=== PATIENT | female | born 1990 | race Two or more races ===

== ENCOUNTER 2018-08-10 02:22 | Observation (INO) ==
--- NOTE | 2018-08-10 02:27 | ED ---
HPI General Chief Complaint: Abdominal Pain Stated Complaint: Medical Time Seen by Provider: 08/10/18 02:26 History of Present Illness HPI narrative: Patient is a 28-year-old female seen at [facility] the ER diagnosed by CAT scan with appendicitis transfer from Dr. Cox to Dr. Eaton for appendicitis to the OR patient is n.p.o. given Zofran, Zosyn 3.375 g and normal saline IV fluid and is stable at this time. Will be taken to the OR in the a.m. by Dr. Eaton from the ER Related Data Home Medications Medication Instructions Recorded Confirmed No Known Home Medications 08/09/18 08/10/18 Previous Rx's Medication Instructions Recorded hydrocodone-acetaminophen 1 tab PO Q4-6H PRN #25 tab 08/10/18 Allergies Allergy/AdvReac Type Severity Reaction Status Date / Time ibuprofen Allergy Hives Verified 08/09/18 21:21 Review of Systems ROS: all other systems reviewed are negative [facility] Social History Social History Substance History: No History of Abuse Second Hand Smoke Exposure: Yes Smoking Status: Current every day smoker Tobacco Type: Cigarettes How Often Do You Have a Drink Containing Alcohol: Never Recent Travel in [facility] within the Last 8 Weeks: No Recent Out of Country Travel within the Last 8 Weeks: No Exam Narrative Exam Narrative: GENERAL: SKIN: Warm and dry. HEAD: Atraumatic. Normocephalic. EYES: Pupils equal and round. No scleral icterus. No injection or drainage. ENT: No nasal bleeding or discharge. Mucous membranes pink and moist. NECK: Trachea midline. No JVD. CARDIOVASCULAR: Regular rate and rhythm. RESPIRATORY: No accessory muscle use. Clear to auscultation. Breath sounds equal bilaterally. GASTROINTESTINAL: Abdomen tender to RLQ MUSCULOSKELETAL: Extremities without clubbing, cyanosis, or edema. No obvious deformities. NEUROLOGICAL: Awake and alert. No obvious cranial nerve deficits. Motor grossly within normal limits. Five out of 5 muscle strength in the arms and legs. Normal speech. PSYCHIATRIC: Appropriate mood and affect; insight and judgment normal. Course Initial Documented Vital Signs Pulse Rate 74 08/10/18 02:24 Respiratory Rate 20 08/10/18 02:24 Blood Pressure 118/62 08/10/18 02:24 Pulse Oximetry 98 08/10/18 02:24 Last Documented Vital Signs Temperature 98.1 F 08/11/18 04:00 Pulse Rate 65 08/11/18 04:00 Respiratory Rate 18 08/11/18 08:18 Blood Pressure 106/58 L 08/11/18 04:00 Pulse Oximetry 99 08/11/18 04:00 Medical Decision Making MDM Narrative Medical Screen Exam Complete: Yes Emergency Medical Condition: Yes Discharge Plan Discharge Disposition Patient Disposition: 01 Discharge Home Discharge Condition Condition: Stable Discharge Order Discharge Orders: Discharge Order (Routine); Ordered 08/11/18 Ordered By: Joshua Luna Discharge Details Anticipated Discharge Date: 08/10/18 Physicians Team ED Provider: Luc Batista Primary Care Provider: Primary Care Jacey Kam Attending Provider: Joshua Luna Other Providers: Surgeons,[facility] Status ED Status: Left Department Discharge Information Discharge Date/Time: 08/10/18 08:58
[2018-08-10] MEDS: Sod Chloride 0.9% Inj 1,000 ML IV.CONT SCH ×2 (03:12→23:21)
[2018-08-10] MEDS ORDERED: Morphine Inj 4 MG/ML Vial IV.PUSH ONE (03:16)
[2018-08-10] MEDS: Morphine Sulfate Inj 2 MG/ML Vial IV.PUSH PRN ×2 (03:23→15:24)
[2018-08-10] MEDS: Piperacil/Tazo 3.375 GM Premix 50 ML IV.SIG SCH ×3 (07:25→23:21)
--- NOTE | 2018-08-10 09:19 | P.HPGS ---
History of Present Illness Service: HISTORY AND PHYSICAL NOTE FOR SURGICAL ATTENDING, DR. BRIAN LUNA General Surgery Primary Care Physician: No Primary Care Physician Chief Complaint: Abdominal pain History of Present Illness: This is a 28 year old female with no significant medical history who was in her usual state of health yesterday until she developed acute onset of RIGHT lower quadrant abdominal pain yesterday afternoon with associated nausea and vomiting. She denies any fever or chills. She went to the ED in [place] and had a CT abdomen/pelvis with findings consistent with acute appendicitis. She did have an elevated WBC of 18.9k. The patient was transported to [facility] for a General Surgery consultation. - Diagnosis (1) Acute appendicitis (2) Abnormal findings on diagnostic imaging of abdomen (3) Elevated WBC count Inpatient Certification: I certify that the inpatient services were ordered in accordance with Medicare regulations governing the order. This includes certification that hospital inpatient services are reasonable and necessary and in the case of services not specified as inpatient-only under 42 CFR 419.22(n), that they are appropriately provided as inpatient services in accordance to with the 2-midnight benchmark under 43 CFR 412.3(e) Plans for Post Hospital Care: Home Review of Systems All other systems reviewed negative except as stated in HPI PMFSH - History History Provided By: Patient - Medical History Medical History: Medical History (Last Reviewed 08/10/18 @ 10:57 by Brian Luna MD) Patient denies medical problems - Surgical History Surgical History: Surgical History (Last Reviewed 08/10/18 @ 10:57 by Brian Luna MD) No history of previous surgery - Social History I have reviewed the patient's Social History: Yes - Tobacco History Second Hand Smoke Exposure: Yes Tobacco Use In Past 30 Days: Yes Smoking Status: Current every day smoker Tobacco Type: Cigarettes - Alcohol History How Often Do You Have a Drink Containing Alcohol: Never - Substance Use History Substance History: No History of Abuse - Travel History Recent Travel in the [place] Within the Last 8 Weeks: No Recent Travel Out of the Country Within the Last 8 Weeks: No - Immunization History Tetanus Immunization: Unsure Hx Influenza Vaccine This Season: No Medications and Allergies Allergies Allergy/AdvReac Type Severity Reaction Status Date / Time ibuprofen Allergy Hives Verified 08/09/18 21:21 Home Medications Medication Instructions Recorded Confirmed Type No Known Home Medications 08/09/18 08/10/18 History Active Medications: Active Medications Sodium Chloride (Ns Inj) 1,000 mls @ 125 mls/hr IV.CONT .Q8H [facility] Last Admin: 08/10/18 03:12 Dose: 125 mls/hr Piperacillin/Tazobactam/Dextrose (Zosyn 3.375 Gm Premix) 50 mls @ 100 mls/hr IV.SIG Q8H [facility] Last Infusion: 08/10/18 08:10 Dose: Infused Morphine Sulfate (Morphine Inj) 2 mg IV.PUSH Q3H PRN PRN Reason: ABDOMINAL PAIN Last Admin: 08/10/18 03:23 Dose: 2 mg Ondansetron HCl (Zofran Inj) 4 mg IV.PUSH Q6H PRN PRN Reason: Acute Pain Sodium Chloride (Ns Flush) 2 ml IV.FLUSH BID [facility] Last Admin: 08/10/18 08:11 Dose: Not Given Sodium Chloride (Ns Flush) 2 ml IV.FLUSH PRN PRN PRN Reason: FLUSH AFTER USING IV ACCESS Exam Vital signs: Vital Signs 08/10/18 02:24 08/10/18 05:01 08/10/18 05:07 Temperature 98.0 F Pulse Rate 74 70 76 Respiratory Rate 20 18 18 Blood Pressure 118/62 106/55 L Pulse Oximetry 98 100 100 08/10/18 07:27 Temperature 98.1 F Pulse Rate 60 Respiratory Rate 17 Blood Pressure 98/52 L Pulse Oximetry 99 Intake & Output 08/09/18 08/10/18 08/10/18 18:59 06:59 18:59 Intake Total 50 / 50 Balance 50 / 50 Weight 57.153 kg Intake: IV 50 / 50 Zosyn 3.375 GM Premix 50 ML @ 50 / 50 100 mls/hr IV.SIG Q8H [facility] Rx#: [id number] Narrative: GENERAL: Pleasant 28 year old female resting in mild acute distress secondary to abdominal pain. SKIN: Warm and dry. HEAD: Atraumatic. Normocephalic. EYES: Pupils equal and round. No scleral icterus. No injection or drainage. ENT: No nasal bleeding or discharge. Mucous membranes pink and moist. NECK: Trachea midline. CARDIOVASCULAR: Regular rate and rhythm. RESPIRATORY: No accessory muscle use. Clear to auscultation. Breath sounds equal bilaterally. GASTROINTESTINAL: Abdomen soft, mildly distended; RLQ abdominal tenderness to palpation. No visible scars of hernias. Umbilical piercing in place. MUSCULOSKELETAL: Extremities without clubbing, cyanosis, or edema. No obvious deformities. NEUROLOGICAL: Awake and alert. No obvious cranial nerve deficits. Motor grossly within normal limits. Five out of 5 muscle strength in the arms and legs. Normal speech. PSYCHIATRIC: Appropriate mood and affect; insight and judgment normal. Results - Labs White count 18,000 - Imaging Imaging: CT scan abdomen pelvis FINDINGS: LOWER LUNGS: The visualized lower lungs are clear. LIVER: The liver has a homogeneous density without space-occupying lesion. There is no dilation of the biliary tree. SPLEEN: Homogeneous density without enlargement. PANCREAS: Unremarkable without mass or calcification. KIDNEYS: Kidneys demonstrate symmetrical enhancement and are symmetrical in size without evidence for radiopaque renal calculi or hydronephrosis. ADRENAL GLANDS: Unremarkable. AORTA: Karin-aneurysmal. BOWEL/MESENTERY: There is a focal hyperdensity near the cecum at the expected origin of the appendix consistent with appendicolith. Dilated tubular structure extending from this region with mild blunting inflammatory change consistent with acutely inflamed appendix. Several subcentimeter mesenteric nodes are likely reactive. No free air or abscess at this time. ABDOMINAL WALL: Intact. RETROPERITONEUM: No evidence of adenopathy in the retrocrural, para-aortic, or deep pelvic regions. BLADDER: Contours are smooth. REPRODUCTIVE: Prominent endometrium. 1.7 cm left ovarian cyst. BONY STRUCTURES: Unremarkable. CONCLUSION: 1. Findings consistent with acute appendicitis. No evidence for rupture or abscess at this time. CT scan - abdomen: report reviewed, image reviewed CT scan - pelvis: report reviewed, image reviewed Caprini VTE Risk Assessment Caprini VTE Risk Assessment: No/Low Risk (score <= 1) VTE Pharmacological Exception Reason: Documented (Patient going to OR ) Caprini Risk Assessment Model: Point Value = 1 Point Value = 2 Point Value = 3 Point Value = 5 Age 41-60 Minor surgery BMI > 25 kg/m2 Swollen legs Varicose veins or History of unexplained or recurrent spontaneous Oral contraceptives or hormone replacement Sepsis (< 1 month) Serious lung disease, including pneumonia (< 1 month) Abnormal pulmonary function Acute myocardial infarction Congestive heart failure (< 1 month) History of inflammatory bowel disease Medical patient at bed rest Age 61-74 Arthroscopic surgery Major open surgery (> 45 min) Laparoscopic surgery (> 45 min) Malignancy Confined to bed (> 72 hours) Immobilizing plaster cast Central venous access Age >= 75 History of VTE Family history of VTE Factor V Leiden Prothrombin [id number] Lupus anticoagulant Anticardiolipin antibodies Elevated serum homocysteine Heparin-induced thrombocytopenia Other congenital or acquired thrombophilia Stroke (< 1 month) Elective arthroplasty Hip, pelvis, or leg fracture Acute spinal cord injury (< 1 month) Prophylaxis Regimen: Total Risk Factor Score Risk Level Prophylaxis Regimen 0-1 Low Early ambulation 2 Moderate Order ONE of the following: *Sequential Compression Device (SCD) *Heparin 5000 units SQ BID 3-4 Higher Order ONE of the following medications: *Heparin 5000 units SQ TID *Enoxaparin/Lovenox 40 mg SQ daily (WT < 150 kg, CrCl > 30 mL/min) *Enoxaparin/Lovenox 30 mg SQ daily (WT < 150 kg, CrCl > 10-29 mL/min) *Enoxaparin/Lovenox 30 mg SQ BID (WT < 150 kg, CrCl > 30 mL/min) AND/OR *Sequential Compression Device (SCD) 5 or more Highest Order ONE of the following medications: *Heparin 5000 units SQ TID (Preferred with Epidurals) *Enoxaparin/Lovenox 40 mg SQ daily (WT < 150 kg, CrCl > 30 mL/min) *Enoxaparin/Lovenox 30 mg SQ daily (WT < 150 kg, CrCl > 10-29 mL/min) *Enoxaparin/Lovenox 30 mg SQ BID (WT < 150 kg, CrCl > 30 mL/min) AND *Sequential Compression Device (SCD) Assessment and Plan - Assessment (1) Acute appendicitis Code(s): K35.80 - Unspecified acute appendicitis Status: Acute Qualifiers: Acute appendicitis type: with generalized peritonitis Appendicitis abscess presence: without abscess Plan: 28 year old female with acute appendicitis -Plan for OR this morning with Dr. Luna -Obtain consents -NPO -IVF -Continue IV antibiotics -Morphine available for pain control -Procedure explained in detail including risks and benefits -All questions answered (2) Abnormal findings on diagnostic imaging of abdomen Code(s): R93.5 - Abnormal findings on diagnostic imaging of other abdominal regions, including retroperitoneum Status: Acute (3) Elevated WBC count Code(s): D72.829 - Elevated white blood cell count, unspecified Status: Acute - Plan HISTORY and physical NOTE FOR SURGICAL ATTENDING, DR. BRIAN LUNA Patient has classic signs and symptomatology consistent with appendicitis confirmed with radiologic imaging Plan laparoscopic appendectomy possible open I agree with above assessment and plan. The exam, history, and the medical decision-making described in the above note were completed with the assistance of the mid-level provider. I reviewed and agree with the findings presented. I attest that I had a [id number] encounter with the patient on the same day, and personally performed and documented my assessment and findings in the medical record. The following services were provided during this hospital visit: Chart data review, vital sign assessments/reviewing monitor data Review of consultations notes if present. Medication orders/review and/or management Ordering and/or reviewing lab tests Ordering and/or interpreting/reviewing x-rays and/or diagnostic studies Care of the patient and discussion of the patient with the care team Documentation time To help prompt me to consider important information that might be impacting today's encounter and assessment, Information from prior notes written by myself or my colleagues may have been "brought forward/copy and pasted" into today's note.
[2018-08-10] MEDS ORDERED: Chlorhexidine Gluconate 2% 1 Pack (2 Cloths) TOPICAL ONE (10:45)
[2018-08-10] MEDS ORDERED: Metoprolol Tartrate 25 MG Tablet PO ONE (10:45)
[2018-08-10] MEDS ORDERED: Sodium Chlor 0.9% Inj 500 ML IV.CONT ONE (10:45)
[2018-08-10] MEDS ORDERED: Bupivacaine/Epinephrine 0.5% Inj 50 ML Vial ONE (10:50)
[2018-08-10] MEDS ORDERED: Phenylephrine/NS 1000 MCG/10ML Syringe IV.PUSH ONE (11:15)
[2018-08-10] MEDS ORDERED: Lidocaine PF 1% Inj 5 ML Syringe OTHER ONE (11:15)
[2018-08-10] MEDS ORDERED: Succinylcholine Inj 100 MG/5 ML Syringe IV.PUSH ONE (11:15)
[2018-08-10] MEDS ORDERED: Post-op Orders (for Pharmacy) OTHER ONE (11:55)
--- NOTE | 2018-08-10 12:00 | P.OP ---
- Preoperative Diagnosis (1) Acute appendicitis - Postoperative Diagnosis (1) Acute appendicitis Date of procedure: 08/10/18 Procedure: Laparoscopic appendectomy Anesthesia: GETA Surgeon: Joshua Luna MD Pathology: other Operation and Findings: PREOP DIAGNOSIS: Acute Abdomen Possible Appendicitis POSTOP DIAGNOSIS: Acute Appendicitis PROCEDURE: Laparoscopic Appendectomy ANESTHESIA: Gen. SURGEON: Dr. Joshua Luna M.D. ASSIST: Please refer to operating room records INDICATIONS: Patient presented with a clinical diagnosis consistent with appendicitis plans are made for above. DESCRIPTION OF PROCEDURE: Patient was brought to the operating room placed under general anesthesia. Patient was given preoperative antibiotics and had sequential compression devices placed to the lower extremities. After prepping the and draping the abdomen with antiseptic. A 10 mm incision is made just in the infraumbilical area the veres needle was inserted and then the saline load test is performed. After insufflating the abdomen with 15 mm of pressure of CO2 a 10 mm trocars and placed in the abdomen. The camera was introduced into the 10 mm port and the other working 5mm ports are placed in the midline, one above the pubic tubercle and one in between the 2 previously placed ports. The Camera is introduced and the appendix can be seen and is obviously inflamed. The appendix is then grasped and the mesentery taken down with harmonic scalpel. Two PDS endo- ties are then placed around the base of the appendix, the appendix is amputated off the cecum and placed in the Endo Catch and pulled out through the umbilicus incision. Irrigation is used and we checked our dissections dissection site for hemostasis. The trocars were then removed the 10 mm port sites closed with a 0 Vicryl and the skin with 4-0 Vicryl. Patient returned to the recovery room in stable condition.
[2018-08-10] MEDS ORDERED: *morphine SULFATE 4 MG/ML PERIprocedure ONLY ONE (12:46)
[2018-08-11 05:50] VITALS: BP 106/58; PULSE 65; TEMP 98.1; O2SAT 99
[2018-08-11] MEDS: Sod Chloride 0.9% Inj 1,000 ML IV.CONT SCH (07:39)
[2018-08-11] MEDS: Piperacil/Tazo 3.375 GM Premix 50 ML IV.SIG SCH (07:44)
[2018-08-11 08:47] VITALS: RESP 18
--- NOTE | 2018-08-11 12:10 | P.DS ---
Date of admission: 08/10/18 06:51 Primary care physician: No Primary Care Physician Attending physician on discharge: Ronni Eaton Anticipated date of discharge: 08/11/18 Brief History from admission: This is a 28 year old female with no significant medical history who was in her usual state of health yesterday until she developed acute onset of RIGHT lower quadrant abdominal pain yesterday afternoon with associated nausea and vomiting. She denies any fever or chills. She went to the ED in [place] and had a CT abdomen/pelvis with findings consistent with acute appendicitis. She did have an elevated WBC of 18.9k. The patient was transported to [facility] for a General Surgery consultation. DS: Diagnosis - Discharge Diagnosis (1) Acute appendicitis Status: Acute DS: Medications - Discharge Medications Prescriptions: hydrocodone-acetaminophen 1 tab PO Q4-6H PRN #25 tab PRN Reason: Pain DS: Summary Hospital Course: This is a 28 year old female POD1 laparoscopic appendectomy. The patient's pain was controlled using oral pain medications. The patient was able to tolerate a regular diet. The patient will follow up in the office as indicated on the DC summary. - Time Spent with Patient Total time spent providing and/or coordinating discharge services: Less than 30 minutes - Quality: VTE Deep Vein Thrombosis/Pulmonary Embolism Present on Admission: No Exam Vital signs: Vital Signs 08/10/18 12:15 08/10/18 12:30 08/10/18 12:45 Temperature 98.1 F Pulse Rate 102 H 84 84 Respiratory Rate 15 15 15 Blood Pressure 115/55 L 105/52 L 98/50 L Pulse Oximetry 99 98 100 08/10/18 13:00 08/10/18 13:51 08/10/18 16:00 Temperature 98.4 F 97.3 F L 98.0 F Pulse Rate 68 71 62 Respiratory Rate 17 18 16 Blood Pressure 100/54 L 99/54 L 101/58 L Pulse Oximetry 100 99 100 08/10/18 20:00 08/11/18 00:00 08/11/18 04:00 Temperature 97.8 F 98.0 F 98.1 F Pulse Rate 70 63 65 Respiratory Rate 18 18 18 Blood Pressure 140/73 125/61 106/58 L Pulse Oximetry 100 100 99 08/11/18 06:00 08/11/18 08:18 Temperature Pulse Rate Respiratory Rate 17 18 Blood Pressure Pulse Oximetry Intake & Output 08/10/18 08/11/18 08/11/18 18:59 06:59 18:59 Intake Total 1880 / 1880 50 / 50 1000 / 1000 Output Total Balance 1870 / 1870 50 / 50 1000 / 1000 Weight 57.153 kg 107.4 kg Intake: IV 1100 / 1100 50 / 50 1000 / 1000 LR 1000 mL Inj 1,000 ML @ 30 1000 / 1000 mls/hr IV.CONT .Q24H [facility] Rx#: [id number] NS Inj 1,000 ML @ 125 mls/hr IV 1000 / 1000 .CONT .Q8H [facility] Rx#:[id number] Zosyn 3.375 GM Premix 50 ML @ 100 / 100 50 / 50 100 mls/hr IV.SIG Q8H [facility] Rx#: [id number] Oral 480 / 480 Anesthesia Amount 300 / 300 Output: Estimated Blood Loss Other: # Voids 2 Weight On Admission 57.153 kg Narrative: Alert and awake Abd: soft; minimally tender around umbilicus; Steri strips in place Results Procedures completed during hospitalization: Laparoscopic appendectomy Pending studies at discharge: Pending at discharge 08/10/18 13:29 Surgical [PTH] Routine Discharge Plan - Discharge Disposition Patient Disposition: Discharge Home - Discharge Condition Condition: Stable - Discharge Order Discharge Orders: Discharge Order (Routine); Ordered 08/11/18 Ordered By: Joshau Luna - Discharge Details Anticipated Discharge Date: 08/10/18 - Physicians Team Primary Care Provider: Primary Care Jacey Kam Attending Provider: Joshua Luna Other Providers: Surgeons,[facility]
== END 2018-08-11 08:58 | disposition home or self-care (01) ==
LOC: NEPC 02:22 → NEDA 04:28 → INTOOBSV 04:28 → NEDA 08:58 → N06 09:06
PROVIDERS: ADMIT Surgery; ATTEND Surgery
PROC: LAPAPPY (ICD-10-PCS; 2018-08-10 11:01)